=== PATIENT | female | born 1950 | race Caucasian/White ===

== ENCOUNTER 2023-04-15 09:09 | Inpatient (IN) | payer MEDICARE, SELFPAY ==
[2023-04-15] VITALS (13 sets, daily range): BP systolic 104–147; BP diastolic 58–96; PULSE 81–96; RESP 18–28; TEMP 36.4–36.9; O2SAT 81–97; BMI 31.1; BMI 24.0
--- NOTE | 2023-04-15 09:17 | ECG_ITS ---
APPROVED REPORT Exam: Resting ECG HR:106 bpm ECG Measurements Heart Rate 106 AXES AZ 144 P 85 QRSd 80 QRS -43 QT 296 T 97 QTc 358 Conclusion SINUS TACHYCARDIA POSSIBLE LEFT ATRIAL ENLARGEMENT [-0.1mV P-WAVE IN V1/V2] LEFT AXIS DEVIATION [QRS AXIS < -30] NONSPECIFIC ST & T-WAVE ABNORMALITY ABNORMAL ECG UNCONFIRMED REPORT Electronically signed by : Adriano Carmen MD 04/15/2023 13:30:22
--- NOTE | 2023-04-15 09:26 | HMH.EDSOB ---
Discharge Plan Disposition Chief Complaint: Shortness of Breath/Dyspnea Referrals Follow up/Referrals: Provider,Referral, MD [Primary Care Provider] - See instructions Clinical Impressions Clinical Impression: Community acquired pneumonia, Congestive heart failure, Hypoxia Discharge ED Provider: Ranjeet Oconnell Resp/SOB HPI General Chief Complaint: Shortness of Breath/Dyspnea Stated Complaint: soa no balance not eating or drinking Time Seen by Provider: 04/15/23 09:25 History of Present Illness The patient presents to the emergency department complaining of a 1-1/2-week history of dyspnea. This is accompanied by nonproductive cough. The patient denies any fevers. She is a smoker. She has no primary care physician and does not take any medications. She is not on home oxygen. Related Data Allergies Allergy/AdvReac Type Severity Reaction Status Date / Time No Known Allergies Allergy Verified 04/15/23 09:34 [facility] Disclaimer: The information contained in this section may have been updated after the patient was seen, as this information can be updated by other users. Social History Smoking Status: Current every day smoker alcohol intake: never current occupational status: retired Travel in the last 8 weeks: None ROS Obtained: Yes All systems reviewed & no additional complaints except as documented Physical Exam General General appearance: alert and in no apparent distress (Mild respiratory distress) Head Head exam: atraumatic Eye Eye exam: Present normal appearance ENT ENT exam: Present normal exam Neck Neck exam: Present normal inspection and full ROM; Absent tenderness or meningismus Chest Chest inspection: Present normal inspection and symmetric chest wall rise; Absent tenderness Respiratory Respiratory exam: Present respiratory distress (Mild) and other (Diffusely diminished breath sounds.); Absent normal lung sounds bilaterally, wheezes, stridor, accessory muscle use or prolonged expiratory phase Cardiovascular Cardiovascular exam: Present regular rate, normal rhythm, tachycardia and normal heart sounds Abdominal Exam Abdominal exam: Present soft and normal bowel sounds; Absent distention, tenderness, heel tap sign, Honeycutt's sign, Rovsing's sign, tenderness at McBurney's Point or mass Extremities Exam Extremities exam: Present normal inspection and full ROM; Absent edema or calf tenderness Back Exam Back exam: Present normal inspection; Absent CVA tenderness (R) or CVA tenderness (L) Neurological Exam Neurological exam: Present alert and oriented X3 Psychiatric Psychiatric exam: Present normal affect and normal mood Skin Skin exam: Present warm, dry, intact and normal color Medical Decision Making Chance Inquiry Pt receiving controlled substance: No Vital Signs: 04/15/23 09:36 04/15/23 09:10 04/15/23 09:30 Temperature 97.5 F L Temperature Source Oral Pulse Rate 96 H Pulse Rate [Left] 81 Respiratory Rate 26 H 24 Blood Pressure 122/75 Blood Pressure [Right Arm] 147/96 H Blood Pressure Mean 98 Blood Pressure Mean [Right Arm] 113 Blood Pressure Source [Right Arm] Automatic Cuff Blood Pressure Position [Right Arm] Sitting 02 Sat by Pulse Oximetry 96 81 L 96 Oxygen Delivery Method Nasal Cannula Room Air Oxygen Flow Rate (LPM) 4 04/15/23 10:00 04/15/23 10:31 Temperature Temperature Source Pulse Rate 92 H 89 Pulse Rate [Left] Respiratory Rate 24 28 H Blood Pressure 120/62 137/74 Blood Pressure [Right Arm] Blood Pressure Mean 81 95 Blood Pressure Mean [Right Arm] Blood Pressure Source [Right Arm] Blood Pressure Position [Right Arm] 02 Sat by Pulse Oximetry 96 96 Oxygen Delivery Method Nasal Cannula Oxygen Flow Rate (LPM) 4 Lab Data Lab Results 04/15/23 09:31: WBC 25.7 H*, RBC 4.93, Hgb 14.8, Hct 47.4 H, MCV 96.2, MCH 30.1, MCHC 31.2 L, RDW 13.2, Plt Count 499 H, MPV 8.1, Neut % (Auto) 92.3 H, Lymph % (Auto) 3.3 L, [place] % (Auto
--- NOTE | 2023-04-15 09:28 | XR_ITS ---
FINAL REPORT CLINICAL HISTORY: Dyspnea and hypoxia FINDINGS: There are extensive bilateral pulmonary opacities, left greater than right likely related to multifocal pneumonia. No significant pleural effusion is seen. The cardiac silhouette is unremarkable. IMPRESSION: Extensive lung disease, presumably pneumonia. Close interval follow-up is recommended. Reviewed, Interpreted and Dictated by Hannah Fishman MD Transcribed by Heike Cruz Authenticated and [facility]
[2023-04-15 09:42] LABS: Basophils # 0.1 K/mm3 (0-0.2); Basophils % 0.3 % (0.1-2.0); Eosinophils # 0.1 K/mm3 (0.0-0.4); Eosinophils % 0.3 % (0.1-12.0); Hematocrit 47.4 % (37.0-47.0); Hemoglobin 14.8 g/dL (12.2-16.2); Lymphocytes # 0.8 K/mm3 (0.7-4.5); Lymphocytes % 3.3 % (10-50); Mean Corpuscular HGB Conc 31.2 g/dL (31.8-35.4); Mean Corpuscular Hemoglobin 30.1 pg (27.0-31.2); Mean Corpuscular Volume 96.2 fl (81-99); Mean Platelet Volume 8.1 fl (7.4-10.4); Monocytes % 3.8 % (1.7-9.3); Neutrophils # 23.8 K/mm3 (1.8-7.8); Neutrophils % 92.3 % (37.0-80.0); Platelet Count 499 K/mm3 (142-424); Red Blood Count 4.93 M/mm3 (4.20-5.40); Red Cell Distribution Width 13.2 % (11.5-17.5); White Blood Count 25.7 K/mm3 (4.8-10.8)
[2023-04-15 09:45] LABS: MANUAL DIFFERENTIAL MANUAL DIFFERENTIAL (MANUAL DIFF)
[2023-04-15 09:49] LABS: Coronavirus 19, PCR Not Detected (NotDetected); Influenza A, PCR Not Detected (NotDetected); Influenza B, PCR Not Detected (NotDetected)
[2023-04-15 09:52] LABS: Alanine Aminotransferase 31 U/L (12-78); Albumin Level 3.5 g/dl (3.5-5.0); Albumin/Globulin Ratio 0.8 (1.1-1.8); Alkaline Phosphatase 241 U/L (38-126); Anion Gap 16.1 mEq/L (5-15); Aspartate Amino Transferase 33 U/L (14-36); Bilirubin,Total 0.6 mg/dl (0.2-1.3); Blood Urea Nitrogen 44 mg/dl (7-17); Calcium 8.6 mg/dl (8.4-10.2); Carbon Dioxide 33 mmol/L (22.0-30.0); Chloride 96 mmol/L (98-107); Creatinine Clearance Estimated 57 mL/min (50-200); Estimated Glomerular Filt Rate 49 ml/min (>60); GFR (African American) 59 ML/MIN (>60); Globulin 4.5 g/dL (1.3-3.2); Glucose 122 mg/dl (74-100); Potassium 4.1 mmoL/L (3.5-5.1); Sodium 141 mmol/L (136-145)
[2023-04-15 09:56] LABS: Lymphocytes % 5 % (10-50); Monocytes % 5 % (2-9); Neutrophils % 86 % (42-76); Platelet Estimate Slight Increase; RBC Morphology Normal; Total Cells Counted 100
[2023-04-15 10:03] LABS: NT Pro Brain Natriuretic Pep. 3100 pg/mL (0-125); Troponin I 0.15 ng/ml (0.00-0.034)
[2023-04-15 10:09] LABS: Lactic Acid 2.3 mmol/L (0.7-2.1)
--- NOTE | 2023-04-15 10:19 | PC.NURSE ---
To Ct in wheelchair
--- NOTE | 2023-04-15 10:37 | PC.NURSE ---
2nd blood culture drawn prior to abx start.
--- NOTE | 2023-04-15 10:40 | PC.NURSE ---
Rounded on patient; nothing needed at this time. Call lua within reach
--- NOTE | 2023-04-15 10:50 | PC.NURSE ---
on the phone with hospitalist
--- NOTE | 2023-04-15 10:55 | PC.NURSE ---
Case management called for admission.
[2023-04-15 12:56] LABS: Troponin I 0.15 ng/ml (0.00-0.034)
[2023-04-15 13:55] LABS: Reflex Lactic Add Lactic Reflex
[2023-04-15 14:20] LABS: Lactic Acid Follow Up (RFLX 1) 1.3 mmol/L (0.7-2.1)
[2023-04-15 16:04] LABS: POC Glucose,Bedside 107 (70-110)
--- NOTE | 2023-04-15 16:11 | PC.NURSE ---
Pt. is aox 4, up with stand by assist, 02-4L nc sats at 96%, o skin, 20g L AC sl.
--- NOTE | 2023-04-15 17:49 | EXP.HP ---
History of Present Illness *Admission Date: 04/15/23 *Reason for visit:: Dyspnea and weak *History of present illness: Ms. Corona is a pleasant 72-year-old female who has not seen a doctor in over 8 years. She presented to the ER with worsening cough, shortness of breath for the past 2 to 3 weeks. Since progressed to the point that she could not breathe and decided to come to the ER for further evaluation. Found to be hypoxic. Imaging positive for left lower lobe pneumonia. Started on empiric antibiotics. Additionally patient's BNP is elevated at 3100, leukocytosis of 25. Currently on 4 L nasal cannula. ER consulted medicine for admission. On arrival to the floor, patient states she is feeling somewhat better after starting breathing treatments and antibiotics. Stable on 4 L oxygen. No nausea, vomiting, chest pain. No confusion or syncope. [facility] Disclaimer: The information contained in this section may have been updated after the patient was seen, as this information can be updated by other users. Medical History No pertinent past medical history Surgical History H/O knee surgery Family History No significant family history Social History Smoking Status: Current every day smoker alcohol intake: never current occupational status: retired Travel in the last 8 weeks: None Review of Systems Review of Systems Review of systems (narrative): 14 point review of systems performed, pertinent positives and negatives as per HPI Meds Home Medications and Allergies Home Medications Medication Instructions Recorded Confirmed Type No Known Home Medications 04/15/23 04/15/23 History New Prescriptions to Start Prescriptions: Allergies Allergy/AdvReac Type Severity Reaction Status Date / Time No Known Allergies Allergy Verified 04/15/23 09:34 Exam Data for Last 24 hours Vital signs and Labs for Last 24 Hours: Temp Pulse Resp BP Pulse Ox 97.6 F 86 18 135/62 95 04/15/23 15:58 04/15/23 15:58 04/15/23 15:58 04/15/23 15:58 04/15/23 15:58 Laboratory Results - last 24 hr 04/15/23 09:31: WBC 25.7 H*, RBC 4.93, Hgb 14.8, Hct 47.4 H, MCV 96.2, MCH 30.1, MCHC 31.2 L, RDW 13.2, Plt Count 499 H, MPV 8.1, Neut % (Auto) 92.3 H, Lymph % (Auto) 3.3 L, [place] % (Auto) 3.8, Eos % (Auto) 0.3, Baso % (Auto) 0.3, Neut # (Auto) 23.8 H, Lymph # (Auto) 0.8, [place] # (Auto) 1.0, Eos # (Auto) 0.1, Baso # (Auto) 0.1, Total Counted 100, Neutrophils % (Manual) 86 H, Band Neutrophils % 4.0, Lymphocytes % (Manual) 5 L, Monocytes % (Manual) 5, Platelet Estimate Slight increase, RBC Morphology Normal 04/15/23 09:31: Sodium 141, Potassium 4.1, Chloride 96 L, Carbon Dioxide 33 H, Anion Gap 16.1 H, BUN 44 H, Creatinine 1.10 H, Estimated Creat Clear 57, Estimated GFR 49 L, Est GFR ( Amer) 59, Glucose 122 H, Calcium 8.6, Total Bilirubin 0.6, AST 33, ALT 31, Alkaline Phosphatase 241 H, Troponin I 0.15 H, NT-Pro-B Natriuret Pep 3100 H, Total Protein 8.0, Albumin 3.5, Globulin 4.5 H, Albumin/Globulin Ratio 0.8 L 04/15/23 09:31: Lactate 2.3 H 04/15/23 09:44: SARS-CoV-2 (PCR) Not detected, Influenza A Untype (PCR) Not detected, Influenza Type B (PCR) Not detected 04/15/23 12:20: Troponin I 0.15 H 04/15/23 14:00: Lactate 1.3 04/15/23 15:52: POC Glucose 107 I & O for Last 24 hours: Intake & Output 04/12/23 04/13/23 04/14/23 04/15/23 23:59 23:59 23:59 23:59 Intake Total 240 / 240 Output Total 250 / 250 Balance -10 / -10 Weight 59.534 kg Constitutional Constitutional: mild distress and cooperative *Routine HEENT Exam Head: Present normocephalic Eye: Present EOMI and PERRL ENT: Present mucous membranes moist *Routine Neck Exam Neck: Present supple; Absent lymphadenopathy *Routine Respiratory Exam
[2023-04-15 18:05] LABS: Thyroid Stimulating Hormone 3.38 uIU/mL (0.465-4.68)
[2023-04-16] VITALS (14 sets, daily range): BP systolic 105–151; BP diastolic 49–80; PULSE 65–100; RESP 18–22; TEMP 36.3–36.8; O2SAT 85–97; BMI 24.7
[2023-04-16 06:30] LABS: Basophils # 0.1 K/mm3 (0-0.2); Basophils % 0.2 % (0.1-2.0); Eosinophils # 0.1 K/mm3 (0.0-0.4); Eosinophils % 0.3 % (0.1-12.0); Mean Platelet Volume 7.9 fl (7.4-10.4); Red Cell Distribution Width 13.2 % (11.5-17.5)
[2023-04-16 06:53] LABS: Chloride 98 mmol/L (98-107); Sodium 140 mmol/L (136-145)
[2023-04-16 06:56] LABS: Alanine Aminotransferase 22 U/L (12-78); Alkaline Phosphatase 175 U/L (38-126); Aspartate Amino Transferase 31 U/L (14-36); Bilirubin,Total 0.4 mg/dl (0.2-1.3); Blood Urea Nitrogen 35 mg/dl (7-17); Carbon Dioxide 38 mmol/L (22.0-30.0); Cholesterol 127 mg/dl (140-200); Creatinine Clearance Estimated 50 mL/min (50-200); Estimated Glomerular Filt Rate 55 ml/min (>60); GFR (African American) 66 ML/MIN (>60); Triglycerides 143 mg/dl (30-150); VLDL Cholesterol 29 mg/dL (0-40)
[2023-04-16 06:57] LABS: Albumin Level 2.9 g/dl (3.5-5.0); Albumin/Globulin Ratio 0.8 (1.1-1.8); Calcium 8.3 mg/dl (8.4-10.2); Chol/HDL Ratio 6.4 (1-3.5); Globulin 3.7 g/dL (1.3-3.2); Glucose 97 mg/dl (74-100); HDL Cholesterol 20 mg/dl (40-60); Magnesium 2.7 mg/dl (1.6-2.3); Total Protein,Serum 6.6 g/dl (6.3-8.2)
[2023-04-16 07:08] LABS: Direct LDL Cholesterol 57.86 mg/dL (100-129)
[2023-04-16 07:15] LABS: Hematocrit 43.2 % (37.0-47.0); Lymphocytes % 3.9 % (10-50); Mean Corpuscular HGB Conc 30.5 g/dL (31.8-35.4); Mean Corpuscular Hemoglobin 30.2 pg (27.0-31.2); Monocytes # 1.2 K/mm3 (0.1-1.0); Monocytes % 4.7 % (1.7-9.3); Neutrophils # 23.1 K/mm3 (1.8-7.8); Neutrophils % 90.8 % (37.0-80.0); Platelet Count 470 K/mm3 (142-424); Red Blood Count 4.37 M/mm3 (4.20-5.40); White Blood Count 25.5 K/mm3 (4.8-10.8)
[2023-04-16 07:38] LABS: Hemoglobin 13.2 g/dL (12.2-16.2)
[2023-04-16 07:40] LABS: MANUAL DIFFERENTIAL MANUAL DIFFERENTIAL (MANUAL DIFF)
[2023-04-16 07:51] LABS: Lymphocytes % 6 % (10-50); Monocytes % 8 % (2-9); Neutrophils % 86 % (42-76); Platelet Estimate Slight Increase; Total Cells Counted 100
[2023-04-16 07:52] LABS: RBC Morphology Normal
--- NOTE | 2023-04-16 09:08 | PC.NURSE ---
COURTESY TECH NOTE; ROUNDED ON PT 0800, PT SLEEPING AT THIS TIME, CALL LIGHT WITHIN REACH, NO FURTHER REQUESTS Amber KEY, SRNA
--- NOTE | 2023-04-16 10:12 | EXP.PN ---
Subjective *Date: 04/16/23 *Time: 17:23 Interval history: No acute events overnight. Less dyspnea. Overall feels much better. Continues to have a cough. Exam Data for Last 24 hours Vital signs and Labs for Last 24 Hours: Temp Pulse Resp BP Pulse Ox 97.4 F L 85 20 126/64 97 04/16/23 08:00 04/16/23 08:00 04/16/23 08:00 04/16/23 08:00 04/16/23 08:00 Laboratory Results - last 24 hr 04/15/23 12:20: Troponin I 0.15 H 04/15/23 14:00: Lactate 1.3 04/15/23 14:00: TSH 3.38 04/15/23 15:52: POC Glucose 107 04/16/23 05:38: WBC 25.5 H*, RBC 4.37, Hgb 13.2 D, Hct 43.2, MCV 99.0, MCH 30.2, MCHC 30.5 L, RDW 13.2, Plt Count 470 H, MPV 7.9, Neut % (Auto) 90.8 H, Lymph % (Auto) 3.9 L, [place] % (Auto) 4.7, Eos % (Auto) 0.3, Baso % (Auto) 0.2, Neut # (Auto) 23.1 H, Lymph # (Auto) 1.0, [place] # (Auto) 1.2 H, Eos # (Auto) 0.1, Baso # (Auto) 0.1, Total Counted 100, Neutrophils % (Manual) 86 H, Lymphocytes % (Manual) 6 L, Monocytes % (Manual) 8, Platelet Estimate Slight increase, RBC Morphology Normal 04/16/23 05:38: Sodium 140, Potassium 4.0, Chloride 98, Carbon Dioxide 38 H, Anion Gap 8.0, BUN 35 H, Creatinine 1.00, Estimated Creat Clear 50, Estimated GFR 55 L, Est GFR ( Amer) 66, Glucose 97 D, Calcium 8.3 L, Magnesium 2.7 H, Total Bilirubin 0.4, AST 31, ALT 22 D, Alkaline Phosphatase 175 H, Total Protein 6.6, Albumin 2.9 L D, Globulin 3.7 H, Albumin/Globulin Ratio 0.8 L, Triglycerides 143, Cholesterol 127 L, LDL Cholesterol Direct 57.86 L, VLDL Cholesterol 29, HDL Cholesterol 20 L, Cholesterol/HDL Ratio 6.4 H I & O for Last 24 hours: Intake & Output 04/13/23 04/14/23 04/15/23 04/16/23 23:59 23:59 23:59 23:59 Intake Total 530 / 530 240 / 240 Output Total 250 / 250 0 / 0 Balance 280 / 280 240 / 240 Weight 59.534 kg 60.917 kg Constitutional Constitutional: no acute distress *Routine HEENT Exam Head: Present normocephalic Eye: Present EOMI and PERRL ENT: Present mucous membranes moist *Routine Neck Exam Neck: Present supple; Absent lymphadenopathy *Routine Respiratory Exam Respiratory: Present accessory muscle use and symmetric chest movement; Absent stridor or wheezes *Routine Cardiovascular Exam Cardiovascular: Present RRR *Routine Abdominal Exam Abdominal: Present soft and normoactive bowel sounds; Absent tenderness *Routine Extremities Exam Extremities: Absent cyanosis, clubbing or edema *Routine Skin Exam Skin: Present warm; Absent rash *Routine Neurological Exam Neurological: Present alert and oriented X3 Assessment and Plan *Assessment and plan (1) Tobacco use disorder: Status: Chronic Category: Medical Code(s): F17.200 - Nicotine dependence, unspecified, uncomplicated (2) Acute hypoxemic respiratory failure: Status: Acute Category: Medical Code(s): J96.01 - Acute respiratory failure with hypoxia (3) Community acquired pneumonia: Status: Acute Qualifiers: Laterality: unspecified laterality Qualified Code(s): J18.9 - Pneumonia, unspecified organism Category: Medical Code(s): J18.9 - Pneumonia, unspecified organism (4) Hypoxia: Status: Acute Category: Medical Code(s): R09.02 - Hypoxemia (5) NSTEMI (non-ST elevated myocardial infarction): Status: Acute Category: Medical Code(s): I21.4 - Non-ST elevation (NSTEMI) myocardial infarction Plan Bharati Corona is a 72 year old female who presented with 2-3 weeks of shortness of breath and admitted on 04/15 with left lower lobe pneumonia. #acute hypoxic respiratory failure #community acquired pneumonia. #sepsis wean supplemental oxygen as tolerated stop zosyn and start Rocephin. continue duoneb q6h follow cultures ambulate BID start Mucinex dvt ppx: lovenox DNI cardiac diet
--- NOTE | 2023-04-16 10:42 | EXP.CARD.CON ---
History of Present Illness History of Present Illness Consult date: 04/16/23 Requesting physician: Darrell Mars Consult reason: chest pain Chief complaint: Pneumonia, NSTEMI type 2 Additional Medical History:: 1. Tobacco use A. 1 pack/day x 15 years 2. Pneumonia, 04/15/2023 3. Elevated troponin secondary to pneumonia, 04/16/2023 A. EKG, 04/15/2023, sinus tach with left axis deviation and nonspecific ST-T abnormalities History of present illness: Ms. Corona is a pleasant 72-year-old female who has not seen a doctor in over 8 years.? She presented to the ER with worsening cough, shortness of breath for the past 2 to 3 weeks.? Since progressed to the point that she could not breathe and decided to come to the ER for further evaluation.? Found to be hypoxic.? Imaging positive for left lower lobe pneumonia.? Started on empiric antibiotics.? Additionally patient's BNP is elevated at 3100, leukocytosis of 25.? Currently on 4 L nasal cannula.? ER consulted medicine for admission. On arrival to the floor, patient states she is feeling somewhat better after starting breathing treatments and antibiotics.? Stable on 4 L oxygen.? No nausea, vomiting, chest pain.? No confusion or syncope. The above per Dr. Mars Cardiology consulted for evaluation of elevated troponin and elevated BNP. CXR negative for CHF. Longtime smoker Denies history of hypertension, hyperlipidemia or diabetes. No family history of early coronary artery disease. EKG this admission shows sinus tachycardia at 106 bpm, left axis deviation and nonspecific ST-T abnormalities. Preliminary echocardiogram shows preserved ejection fraction at 60-65% without wall motion abnormality or significant valve disease. Troponins have been mildly positive at 0.15 X 2. Patient denies any chest pain, pressure or tightness but does have some exertional shortness of breath over the last couple years that have caused her to discontinue some activities such as mowing her grass. She just felt that her smoking was the cause of it. She currently asymptomatic from a chest pain standpoint. She is feeling better after breathing treatments and antibiotics have been started. She is still on oxygen. [facility] Disclaimer: The information contained in this section may have been updated after the patient was seen, as this information can be updated by other users. Medical History No pertinent past medical history Surgical History H/O knee surgery Family History No significant family history Social History Smoking Status: Current every day smoker alcohol intake: never current occupational status: retired Travel in the last 8 weeks: None Review of Systems Review of Systems Review of systems:: pertinent systems reviewed and negative unless documented below *Cardiovascular Cardiovascular: Denies chest pain and Reports dyspnea on exertion *Respiratory Respiratory: Reports dyspnea on exertion *Gastrointestinal Gastrointestinal: Denies abdominal pain Exam Data for Last 24 hours Vital signs and Labs for Last 24 Hours: Temp Pulse Resp BP Pulse Ox 97.4 F L 85 20 126/64 97 04/16/23 08:00 04/16/23 08:00 04/16/23 08:00 04/16/23 08:00 04/16/23 08:00 Laboratory Results - last 24 hr 04/15/23 12:20: Troponin I 0.15 H 04/15/23 14:00: Lactate 1.3 04/15/23 14:00: TSH 3.38 04/15/23 15:52: POC Glucose 107 04/16/23 05:38: WBC 25.5 H*, RBC 4.37, Hgb 13.2 D, Hct 43.2, MCV 99.0, MCH 30.2, MCHC 30.5 L, RDW 13.2, Plt Count 470 H, MPV 7.9, Neut % (Auto) 90.8 H, Lymph % (Auto) 3.9 L, [place] % (Auto) 4.7, Eos % (Auto) 0.3, Baso % (Auto) 0.2, Neut # (Auto) 23.1 H, Lymph # (Auto) 1.0, [place] # (Auto) 1.2 H, Eos # (Auto) 0.1, Baso # (Auto) 0.1, Total Counted 100, Neutrophils % (Manual) 86 H, Lymphocytes % (Manual) 6 L,
--- NOTE | 2023-04-16 14:32 | PC.NURSE ---
COURTESY TECH NOTE; ROUNDED ON PT, PT DENIED NEED FOR ASSISTANCE WITH RESTROOM, DRINK, AND NEED TO REPOSITION. CALL LIGHT WITHIN REACH, NO FURTHER REQUESTS AT THIS TIME [place] HERNANDEZ
--- NOTE | 2023-04-16 16:22 | PC.NURSE ---
A&OX4. PT HAS BEEN ON 5LNC MAJORITY OF SHIFT THUS FAR. STAFF WALKED IN TO CHECK PT TO FIND HER OXYGEN OFF. RA WAS 86%. PT PLACED ON 3LNC, WILL RE-CHECK O2 SAT. PT HAS DRY UNPRODUCTIVE COUGH THUS FAR. PT UP INDEPENDENTLY TO BATHROOM. NO NEEDS OR C/O NOTED THUS FAR. VSS.
[2023-04-17] VITALS (14 sets, daily range): BP systolic 119–143; BP diastolic 63–85; PULSE 66–89; RESP 18–20; TEMP 36.5–36.8; O2SAT 91–95; BMI 24.8
[2023-04-17 07:10] LABS: Basophils # 0.1 K/mm3 (0-0.2); Basophils % 0.5 % (0.1-2.0); Eosinophils # 0.1 K/mm3 (0.0-0.4); Eosinophils % 0.5 % (0.1-12.0); Hematocrit 40.6 % (37.0-47.0); Hemoglobin 12.4 g/dL (12.2-16.2); Lymphocytes # 1.2 K/mm3 (0.7-4.5); Mean Corpuscular HGB Conc 30.6 g/dL (31.8-35.4); Mean Corpuscular Hemoglobin 30.4 pg (27.0-31.2); Mean Corpuscular Volume 99.2 fl (81-99); Mean Platelet Volume 7.9 fl (7.4-10.4); Monocytes % 4.9 % (1.7-9.3); Neutrophils # 17.7 K/mm3 (1.8-7.8); Platelet Count 469 K/mm3 (142-424); Red Blood Count 4.09 M/mm3 (4.20-5.40); Red Cell Distribution Width 13.1 % (11.5-17.5); White Blood Count 20.2 K/mm3 (4.8-10.8)
[2023-04-17 07:11] LABS: MANUAL DIFFERENTIAL MANUAL DIFFERENTIAL (MANUAL DIFF)
[2023-04-17 07:23] LABS: Chloride 98 mmol/L (98-107); Potassium 4.3 mmoL/L (3.5-5.1); Sodium 142 mmol/L (136-145)
[2023-04-17 07:26] LABS: Anion Gap 9.3 mEq/L (5-15); Blood Urea Nitrogen 24 mg/dl (7-17); Calcium 8.2 mg/dl (8.4-10.2); Carbon Dioxide 39 mmol/L (22.0-30.0); Creatinine Clearance Estimated 50 mL/min (50-200); Estimated Glomerular Filt Rate 55 ml/min (>60); GFR (African American) 66 ML/MIN (>60); Glucose 93 mg/dl (74-100)
--- NOTE | 2023-04-17 09:11 | EXP.PN ---
Subjective *Date: 04/17/23 *Time: 11:17 Interval history: This morning the patient is saturating 94% on 5L NC. CBC is with 20K WBCs, decreased from 25K yesterday. She has less dyspnea and is coughing less. She denies pain. She has been ambulating and her appetite is good. Exam Data for Last 24 hours Vital signs and Labs for Last 24 Hours: Temp Pulse Resp BP Pulse Ox 97.9 F 74 18 121/64 94 L 04/17/23 07:14 04/17/23 07:14 04/17/23 07:14 04/17/23 07:14 04/17/23 07:14 Laboratory Results - last 24 hr 04/17/23 06:31: WBC 20.2 H*, RBC 4.09 L, Hgb 12.4, Hct 40.6, MCV 99.2 H, MCH 30.4, MCHC 30.6 L, RDW 13.1, Plt Count 469 H, MPV 7.9, Neut % (Auto) 88.0 H, Lymph % (Auto) 6.0 L, [place] % (Auto) 4.9, Eos % (Auto) 0.5, Baso % (Auto) 0.5, Neut # (Auto) 17.7 H, Lymph # (Auto) 1.2, [place] # (Auto) 1.0, Eos # (Auto) 0.1, Baso # (Auto) 0.1 04/17/23 06:31: Sodium 142, Potassium 4.3, Chloride 98, Carbon Dioxide 39 H, Anion Gap 9.3, BUN 24 H D, Creatinine 1.00, Estimated Creat Clear 50, Estimated GFR 55 L, Est GFR ( Amer) 66, Glucose 93, Calcium 8.2 L I & O for Last 24 hours: Intake & Output 04/14/23 04/15/23 04/16/23 04/17/23 23:59 23:59 23:59 23:59 Intake Total 530 / 530 600 / 720 480 / 480 Output Total 250 / 250 0 / 0 0 / 0 Balance 280 / 280 600 / 720 480 / 480 Weight 59.534 kg 60.9 kg 61.292 kg Constitutional Constitutional: no acute distress *Routine HEENT Exam Head: Present normocephalic Eye: Present EOMI and PERRL ENT: Present mucous membranes moist *Routine Neck Exam Neck: Present supple; Absent lymphadenopathy *Routine Respiratory Exam Respiratory: Present accessory muscle use and symmetric chest movement; Absent stridor or wheezes *Routine Cardiovascular Exam Cardiovascular: Present RRR *Routine Abdominal Exam Abdominal: Present soft and normoactive bowel sounds; Absent tenderness *Routine Extremities Exam Extremities: Absent cyanosis, clubbing or edema *Routine Skin Exam Skin: Present warm; Absent rash *Routine Neurological Exam Neurological: Present alert and oriented X3 Assessment and Plan *Assessment and plan (1) Tobacco use disorder: Status: Chronic Category: Medical Code(s): F17.200 - Nicotine dependence, unspecified, uncomplicated (2) Acute hypoxemic respiratory failure: Status: Acute Category: Medical Code(s): J96.01 - Acute respiratory failure with hypoxia (3) Community acquired pneumonia: Status: Acute Qualifiers: Laterality: unspecified laterality Qualified Code(s): J18.9 - Pneumonia, unspecified organism Category: Medical Code(s): J18.9 - Pneumonia, unspecified organism (4) Hypoxia: Status: Acute Category: Medical Code(s): R09.02 - Hypoxemia (5) NSTEMI (non-ST elevated myocardial infarction): Status: Acute Category: Medical Code(s): I21.4 - Non-ST elevation (NSTEMI) myocardial infarction Plan Bharati Corona is a 72 year old female with a past medical history of cigarette nicotine dependence who prior to this admission hadn't seen a physician in over 8 years. She presented with 2-3 weeks of shortness of breath and admitted on 04/15 with left lower lobe pneumonia. She received a day of zosyn which was then changed to Rocephin. She has also been receiving azithromycin. She had an elevated BNP of 3100 and troponin level of 0.15 so Cardiology was consulted. Echocardiogram revealed LVEF 60-65%. Cardiology started aspirin 81mg daily and irbesartan 37.5mg daily and plans for an outpatient stress test or CCTA. #acute hypoxic respiratory failure #community acquired pneumonia. #sepsis wean supplemental oxygen as tolerated. She is currently using 4-5L NC; at baseline doesn't use supplemental oxygen. Continue azithromycin and Rocephin. Continue Duoneb q6h follow cultures ambulate BID Continue Mucinex I will order a CBC and bmp for tomorrow morning. dvt ppx: lovenox DNI cardiac di
[2023-04-17 10:12] LABS: Lymphocytes % 9 % (10-50); Monocytes % 8 % (2-9); Neutrophils % 83 % (42-76); Platelet Estimate Slight Increase; RBC Morphology Normal; Total Cells Counted 100
[2023-04-18] VITALS (15 sets, daily range): BP systolic 131–146; BP diastolic 60–74; PULSE 60–95; RESP 16–22; TEMP 36.5–36.9; O2SAT 78–96; BMI 24.7
[2023-04-18 06:54] LABS: Basophils # 0.1 K/mm3 (0-0.2); Basophils % 0.4 % (0.1-2.0); Eosinophils # 0.2 K/mm3 (0.0-0.4); Hematocrit 40.1 % (37.0-47.0); Hemoglobin 12.2 g/dL (12.2-16.2); Lymphocytes % 6.2 % (10-50); Mean Corpuscular HGB Conc 30.5 g/dL (31.8-35.4); Mean Corpuscular Hemoglobin 29.6 pg (27.0-31.2); Mean Corpuscular Volume 96.9 fl (81-99); Mean Platelet Volume 7.9 fl (7.4-10.4); Monocytes # 0.8 K/mm3 (0.1-1.0); Monocytes % 4.9 % (1.7-9.3); Neutrophils # 14.6 K/mm3 (1.8-7.8); Neutrophils % 87.5 % (37.0-80.0); Platelet Count 457 K/mm3 (142-424); Red Blood Count 4.14 M/mm3 (4.20-5.40); Red Cell Distribution Width 13.1 % (11.5-17.5); White Blood Count 16.7 K/mm3 (4.8-10.8)
[2023-04-18 07:06] LABS: Chloride 98 mmol/L (98-107); Potassium 4.6 mmoL/L (3.5-5.1); Sodium 141 mmol/L (136-145)
[2023-04-18 07:09] LABS: Anion Gap 7.6 mEq/L (5-15); Blood Urea Nitrogen 18 mg/dl (7-17); Carbon Dioxide 40 mmol/L (22.0-30.0); Creatinine Clearance Estimated 50 mL/min (50-200); Estimated Glomerular Filt Rate 82 ml/min (>60); GFR (African American) 100 ML/MIN (>60)
[2023-04-18 07:10] LABS: Calcium 8.1 mg/dl (8.4-10.2); Glucose 94 mg/dl (74-100); MANUAL DIFFERENTIAL MANUAL DIFFERENTIAL (MANUAL DIFF)
--- NOTE | 2023-04-18 08:19 | EXP.PN ---
Subjective *Date: 04/18/23 *Time: 09:51 Interval history: The patient is saturating 90% on 4L NC. CBC is with 16.7K WBCs, decreased from 20K yesterday. She has less dyspnea and cough. Her cough is nonproductive. Exam Data for Last 24 hours Vital signs and Labs for Last 24 Hours: Temp Pulse Resp BP Pulse Ox 97.9 F 77 18 146/67 H 90 L 04/18/23 07:04 04/18/23 07:04 04/18/23 07:04 04/18/23 07:04 04/18/23 07:04 Laboratory Results - last 24 hr 04/17/23 06:31: Total Counted 100, Neutrophils % (Manual) 83 H, Lymphocytes % (Manual) 9 L, Monocytes % (Manual) 8, Platelet Estimate Slight increase, RBC Morphology Normal 04/18/23 06:47: WBC 16.7 H, RBC 4.14 L, Hgb 12.2, Hct 40.1, MCV 96.9, MCH 29.6, MCHC 30.5 L, RDW 13.1, Plt Count 457 H, MPV 7.9, Neut % (Auto) 87.5 H, Lymph % (Auto) 6.2 L, [place] % (Auto) 4.9, Eos % (Auto) 1.0, Baso % (Auto) 0.4, Neut # (Auto) 14.6 H, Lymph # (Auto) 1.0, [place] # (Auto) 0.8, Eos # (Auto) 0.2, Baso # (Auto) 0.1 04/18/23 06:47: Sodium 141, Potassium 4.6, Chloride 98, Carbon Dioxide 40 H, Anion Gap 7.6, BUN 18 H, Creatinine 0.70 D, Estimated Creat Clear 50, Estimated GFR 82, Est GFR ( Amer) 100 D, Glucose 94, Calcium 8.1 L I & O for Last 24 hours: Intake & Output 04/15/23 04/16/23 04/17/23 04/18/23 23:59 23:59 23:59 23:59 Intake Total 530 / 530 600 / 720 1080 / 1200 360 / 360 Output Total 250 / 250 0 / 0 0 / 0 120 / 120 Balance 280 / 280 600 / 720 1080 / 1200 240 / 240 Weight 59.534 kg 60.9 kg 61.292 kg 60.866 kg Microbiology Reports for the Last 24 Hours: Microbiology 04/15/23 10:42 Blood Blood Culture - Preliminary NO GROWTH AFTER 48 HOURS 04/15/23 09:31 Blood Blood Culture - Preliminary NO GROWTH AFTER 48 HOURS Constitutional Constitutional: no acute distress *Routine HEENT Exam Head: Present normocephalic Eye: Present EOMI and PERRL ENT: Present mucous membranes moist *Routine Neck Exam Neck: Present supple; Absent lymphadenopathy *Routine Respiratory Exam Respiratory: Present accessory muscle use and symmetric chest movement; Absent stridor or wheezes *Routine Cardiovascular Exam Cardiovascular: Present RRR *Routine Abdominal Exam Abdominal: Present soft and normoactive bowel sounds; Absent tenderness *Routine Extremities Exam Extremities: Absent cyanosis, clubbing or edema *Routine Skin Exam Skin: Present warm; Absent rash *Routine Neurological Exam Neurological: Present alert and oriented X3 Assessment and Plan *Assessment and plan (1) Tobacco use disorder: Status: Chronic Category: Medical Code(s): F17.200 - Nicotine dependence, unspecified, uncomplicated (2) Acute hypoxemic respiratory failure: Status: Acute Category: Medical Code(s): J96.01 - Acute respiratory failure with hypoxia (3) Community acquired pneumonia: Status: Acute Qualifiers: Laterality: unspecified laterality Qualified Code(s): J18.9 - Pneumonia, unspecified organism Category: Medical Code(s): J18.9 - Pneumonia, unspecified organism (4) Hypoxia: Status: Acute Category: Medical Code(s): R09.02 - Hypoxemia (5) NSTEMI (non-ST elevated myocardial infarction): Status: Acute Category: Medical Code(s): I21.4 - Non-ST elevation (NSTEMI) myocardial infarction Plan Bharati Corona is a 72 year old female with a past medical history of cigarette nicotine dependence who prior to this admission hadn't seen a physician in over 8 years. She presented with 2-3 weeks of shortness of breath and admitted on 04/15 with left lower lobe pneumonia. She received a day of zosyn which was then changed to Rocephin. She has also been receiving azithromycin. She had an elevated BNP of 3100 and troponin level of 0.15 so Cardiology was consulted. Echocardiogram revealed LVEF 60-65%. Cardiology started aspirin 81mg daily and irbesartan 37.5mg daily and janneth
--- NOTE | 2023-04-18 08:28 | P.PN_ITS ---
Subjective *Date: 04/18/23 *Time: 08:28 Medical Exam Vital signs and Labs for Last 24 Hours: Vital Signs Temp Pulse Pulse Resp BP Pulse Ox 04/18/23 07:04 97.9 F 77 18 146/67 H 90 L 04/18/23 06:15 71 04/18/23 06:15 74 04/18/23 06:15 90 L 04/18/23 04:00 70 04/18/23 04:00 98.2 F 74 18 145/72 H 96 04/18/23 00:00 60 04/18/23 00:00 97.8 F 76 20 131/60 92 L 04/17/23 23:19 84 04/17/23 23:18 81 04/17/23 20:00 70 04/17/23 19:51 98.1 F 83 20 143/70 H 93 L 04/17/23 18:30 83 04/17/23 18:29 85 04/17/23 16:00 67 04/17/23 15:35 98.0 F 70 18 131/63 92 L 04/17/23 12:01 75 04/17/23 11:05 97.7 F 71 18 119/67 92 L Intake and Output 04/17/23 04/18/23 04/18/23 23:59 07:59 15:59 Intake Total 360 / 1200 360 / 360 Output Total 0 / 0 120 / 120 Balance 360 / 1200 240 / 240 Intake: Intake, Oral Amount 360 / 1200 360 / 360 Output: Output, Urine Amount 0 / 0 120 / 120 Other: Number of Unmeasured Voids 1 1 Weight 60.866 kg Patient Weight 04/18/23 23:59 Weight 60.866 kg Laboratory Results - last 24 hr 04/17/23 06:31: Total Counted 100, Neutrophils % (Manual) 83 H, Lymphocytes % (Manual) 9 L, Monocytes % (Manual) 8, Platelet Estimate Slight increase, RBC Morphology Normal 04/18/23 06:47: WBC 16.7 H, RBC 4.14 L, Hgb 12.2, Hct 40.1, MCV 96.9, MCH 29.6, MCHC 30.5 L, RDW 13.1, Plt Count 457 H, MPV 7.9, Neut % (Auto) 87.5 H, Lymph % (Auto) 6.2 L, [place] % (Auto) 4.9, Eos % (Auto) 1.0, Baso % (Auto) 0.4, Neut # (Auto) 14.6 H, Lymph # (Auto) 1.0, [place] # (Auto) 0.8, Eos # (Auto) 0.2, Baso # (Auto) 0.1 04/18/23 06:47: Sodium 141, Potassium 4.6, Chloride 98, Carbon Dioxide 40 H, Anion Gap 7.6, BUN 18 H, Creatinine 0.70 D, Estimated Creat Clear 50, Estimated GFR 82, Est GFR ( Amer) 100 D, Glucose 94, Calcium 8.1 L I & O for Labs for Last 24 Hours: Intake & Output 04/15/23 04/16/23 04/17/23 04/18/23 23:59 23:59 23:59 23:59 Intake Total 530 / 530 600 / 720 1080 / 1200 360 / 360 Output Total 250 / 250 0 / 0 0 / 0 120 / 120 Balance 280 / 280 600 / 720 1080 / 1200 240 / 240 Weight 59.534 kg 60.9 kg 61.292 kg 60.866 kg Microbiology Reports for the Last 24 Hours: Microbiology 04/15/23 10:42 Blood Blood Culture - Preliminary NO GROWTH AFTER 48 HOURS 04/15/23 09:31 Blood Blood Culture - Preliminary NO GROWTH AFTER 48 HOURS The patient's infection will respond to the chosen ABx?: Yes Is the patient receiving the right drug, dose, and route?: Yes Could a more targeted ABx be ordered?: No
--- NOTE | 2023-04-18 10:48 | PC.NURSE ---
courtesy tech note: pt is lying in bed with curtains raised as requested. call light is within reach.
[2023-04-18 11:22] LABS: Eosinophils % 1 % (0-3); Lymphocytes % 11 % (10-50); Monocytes % 3 % (2-9); Neutrophils % 85 % (42-76); Total Cells Counted 100
[2023-04-18 11:23] LABS: Platelet Estimate Slight Inc; RBC Morphology Normal
[2023-04-19] VITALS (10 sets, daily range): BP systolic 133–151; BP diastolic 65–83; PULSE 76–90; RESP 18–20; TEMP 36.4–37.2; O2SAT 85–93; BMI 24.7
--- NOTE | 2023-04-19 00:05 | PC.NURSE ---
courtesy note : asked pt about bath, patient refused, states she only bathes every other day and just took a shower last night, said she would probably take one tomorrow, nurse is aware.
--- NOTE | 2023-04-19 05:03 | PC.NURSE ---
O2 had to be titrated up to 3.5L nc for pt to maintain sat >90% overnight. Pt has not voiced any c/o to staff. Ambulating to BR with standby assist. Call light within reach.
[2023-04-19 06:12] LABS: Basophils # 0.1 K/mm3 (0-0.2); Basophils % 0.5 % (0.1-2.0); Eosinophils # 0.1 K/mm3 (0.0-0.4); Eosinophils % 0.9 % (0.1-12.0); Hematocrit 41.9 % (37.0-47.0); Lymphocytes # 1.2 K/mm3 (0.7-4.5); Lymphocytes % 7.8 % (10-50); Mean Corpuscular Hemoglobin 30.4 pg (27.0-31.2); Mean Corpuscular Volume 98.3 fl (81-99); Mean Platelet Volume 7.7 fl (7.4-10.4); Monocytes # 0.9 K/mm3 (0.1-1.0); Monocytes % 6.2 % (1.7-9.3); Neutrophils # 12.6 K/mm3 (1.8-7.8); Neutrophils % 84.6 % (37.0-80.0); Platelet Count 436 K/mm3 (142-424); Red Blood Count 4.27 M/mm3 (4.20-5.40); Red Cell Distribution Width 13.1 % (11.5-17.5); White Blood Count 14.8 K/mm3 (4.8-10.8)
[2023-04-19 06:17] LABS: Chloride 97 mmol/L (98-107); Sodium 141 mmol/L (136-145)
[2023-04-19 06:20] LABS: Blood Urea Nitrogen 18 mg/dl (7-17); Creatinine Clearance Estimated 50 mL/min (50-200); Estimated Glomerular Filt Rate 62 ml/min (>60); GFR (African American) 75 ML/MIN (>60)
[2023-04-19 06:21] LABS: Calcium 8.3 mg/dl (8.4-10.2); Carbon Dioxide 39 mmol/L (22.0-30.0); Glucose 93 mg/dl (74-100)
[2023-04-19 06:38] LABS: ABG Base Excess 9.1 mmol/L (-2.4-2.3); ABG HCO3 33.8 mmhg (22.0-26.0); ABG Oxygen Saturation 95 % (90-100); ABG PH 7.41 mmol/L (7.35-7.45); ABG PO2 77.6 mmhg (80-100); ABG TCO2 35.5 mmhg (23-27)
[2023-04-19 06:41] LABS: Allen's Test Acceptable; Source Right Radial
[2023-04-19 06:42] LABS: ABG PCO2 54.8 mmhg (35.0-45.0)
--- NOTE | 2023-04-19 09:43 | EXP.PULM.CON ---
History of Present Illness History of present illness: Ms. Corona is a 72-year-old female current smoker greater than [id number]-tybj smoking history presented to the hospital with worsening respiratory status found to be having been initiated on antibiotics and pulmonary was called for further evaluation. [facility] Disclaimer: The information contained in this section may have been updated after the patient was seen, as this information can be updated by other users. Medical History No pertinent past medical history Surgical History H/O knee surgery Family History No significant family history Social History Smoking Status: Current every day smoker alcohol intake: never current occupational status: retired Travel in the last 8 weeks: None Review of Systems Constitutional Constitutional: Reports anorexia, Reports body ache(s) and Reports fatigue Eyes Eyes: Denies eye discharge, Denies dry eyes, Denies irritation and Denies itchy eyes ENT Ears, Nose, Mouth, and Throat: Denies epistaxis, Denies facial pain, Denies lip swelling and Denies throat swelling *Cardiovascular Cardiovascular: Reports dyspnea, Reports dyspnea on exertion and Denies leg edema *Respiratory Respiratory: Reports chest congestion, Reports cough, Reports dyspnea, Reports dyspnea on exertion, Denies excessive phlegm production, Denies hemoptysis, Denies pain on inspiration, Denies pain with cough and Reports wheezing *Gastrointestinal Gastrointestinal: Denies abdominal pain, Denies belching and Denies cramping *Musculoskeletal Musculoskeletal: Reports back pain, Reports myalgias and Reports other (No small joint swelling or Pain) Psychiatric Psychiatric: Denies homicidal ideation and Denies suicidal ideation Endocrine Endocrine: Reports fatigue and Denies heat intolerance Hematologic/Lymphatic Hematologic/Lymphatic: Denies easy bleeding and Denies lymphadenopathy Allergic/Immunologic Allergic/Immunologic: Denies itchy eyes, Denies lip swelling, Denies throat swelling and Reports wheezing Pulmonology Exam Inpatient Vital signs and Labs for Last 24 Hours: Temp Pulse Resp BP Pulse Ox FiO2 98.2 F 84 18 133/65 92 L 2 04/19/23 08:00 04/19/23 08:00 04/19/23 08:00 04/19/23 08:00 04/19/23 08:00 04/18/23 19:55 Laboratory Results - last 24 hr 04/18/23 06:47: Total Counted 100, Neutrophils % (Manual) 85 H, Lymphocytes % (Manual) 11, Monocytes % (Manual) 3, Eosinophils % (Manual) 1, Platelet Estimate Slight inc, RBC Morphology Normal 04/19/23 05:53: WBC 14.8 H, RBC 4.27, Hgb 13.0, Hct 41.9, MCV 98.3, MCH 30.4, MCHC 31.0 L, RDW 13.1, Plt Count 436 H, MPV 7.7, Neut % (Auto) 84.6 H, Lymph % (Auto) 7.8 L, [place] % (Auto) 6.2, Eos % (Auto) 0.9, Baso % (Auto) 0.5, Neut # (Auto) 12.6 H, Lymph # (Auto) 1.2, [place] # (Auto) 0.9, Eos # (Auto) 0.1, Baso # (Auto) 0.1 04/19/23 05:53: Sodium 141, Potassium 5.0, Chloride 97 L, Carbon Dioxide 39 H, Anion Gap 10.0, BUN 18 H, Creatinine 0.90 D, Estimated Creat Clear 50, Estimated GFR 62, Est GFR ( Amer) 75 D, Glucose 93, Calcium 8.3 L 04/19/23 06:00: Specimen Source Right radial, O2 % 3.5l, ABG pH 7.41, ABG pCO2 54.8 H, ABG pO2 77.6 L, ABG HCO3 33.8 H, ABG Total CO2 35.5 H, ABG O2 Saturation 95, ABG Base Excess 9.1 H, [place] Test Acceptable I & O for Labs for Last 24 Hours: Intake & Output 04/16/23 04/17/23 04/18/23 04/19/23 23:59 23:59 23:59 23:59 Intake Total 600 / 720 1080 / 1200 960 / 960 480 / 480 Output Total 0 / 0 0 / 0 120 / 120 0 / 0 Balance 600 / 720 1080 / 1200 840 / 840 480 / 480 Weight 134 lb 4.184 oz 135 lb 2 oz 134 lb 3 oz 134 lb 9 oz Constitutional: Present moderate distress Head: Present normocephalic and atraumatic ENT: Present normal exam, normal oropharynx and mucous membranes moist Neck: Prese
--- NOTE | 2023-04-19 09:44 | XR_ITS ---
FINAL REPORT TECHNIQUE: Single view chest CLINICAL HISTORY: Hypoxia COMPARISON: 04/15/2023 FINDINGS: A single view of the chest was obtained. The heart and mediastinum are within normal limits. There are persistent bilateral pulmonary opacities consistent with bilateral pneumonia. There is a small right pleural effusion. There is no pneumothorax. Osseous structures are unremarkable. IMPRESSION: Persistent bilateral pulmonary opacities consistent with bilateral pneumonia. Small right pleural effusion. Reviewed, Interpreted and Dictated by Pj Burgos III, MD Transcribed by Sintia Castro Authenticated and [facility]
--- NOTE | 2023-04-19 10:44 | PC.NURSE ---
88% oxygen saturation on room air
--- NOTE | 2023-04-19 12:46 | EXP.DC.SUM ---
General Admission date:: 04/15/23 Discharge date: 04/20/23 HPI HPI HPI: Ms. Corona is a pleasant 72-year-old female who has not seen a doctor in over 8 years. She presented to the ER with worsening cough, shortness of breath for the past 2 to 3 weeks. Since progressed to the point that she could not breathe and decided to come to the ER for further evaluation. Found to be hypoxic. Imaging positive for left lower lobe pneumonia. Started on empiric antibiotics. Additionally patient's BNP is elevated at 3100, leukocytosis of 25. Currently on 4 L nasal cannula. ER consulted medicine for admission. On arrival to the floor, patient states she is feeling somewhat better after starting breathing treatments and antibiotics. Stable on 4 L oxygen. No nausea, vomiting, chest pain. No confusion or syncope. Hospital Course Hospital Course Hospital Course: Bharati Corona is a 72 year old female with a past medical history of cigarette nicotine dependence who prior to this admission hadn't seen a physician in over 8 years. She presented with 2-3 weeks of shortness of breath and admitted on 04/15 with left lower lobe pneumonia. She received a day of zosyn which was then changed to Rocephin. She will complete 7 days total of azithromycin and cephalosporin. 1 more day of antibiotics at discharge. Stable oxygen on 3 L. Cardiology and pulmonology consulted during admission and assisting with care. Patient stable for discharge home to continue treatment. Med sent to clinic pharmacy. Problems addressed as follows: #acute hypoxic respiratory failure #community acquired pneumonia. #sepsis, Admitted for hypoxemic respiratory failure due to pneumonia. Found to have elevated BNP. Pulmonology and cardiology consulted to assist with care during admission. Patient started on broad-spectrum antibiotics with Zosyn, transitioned to ceftriaxone and azithromycin. Will complete 7 days total of antibiotics. Due for 1 more day after discharge and will complete course with cefdinir 300 mg twice daily x1 day and azithromycin 500 mg x 1 day. Started on steroids day of discharge, will complete a total of 5 days of steroids with prednisone 40 mg daily. Patient still requiring oxygen at discharge, 3 L nasal cannula. Room air saturation was 85%. Is overall done well through her hospitalization. Continue incentive spirometry. Sent with [facility] and order for nebulizer as DME. We will continue diuresis for another few days given pulmonary congestion on chest imaging. Cardiology recommended continued treatment for her blood pressure with irbesartan daily and aspirin 81 mg daily. White cell count has normalized. Cultures remain negative. Overall doing better. Stable for discharge home. Follow-up in the next 2 weeks with pulmonology. Follow-up with cardiology in the coming weeks for further evaluation of coronary artery disease. Initiated on Trelegy 100 inhaler at discharge. Continue to use daily. Stable for discharge home. Exam Data for Last 24 hours Vital signs and Labs for Last 24 Hours: Temp Pulse Resp BP Pulse Ox FiO2 97.6 F 83 18 151/83 H 93 L 2 04/19/23 12:00 04/19/23 12:00 04/19/23 12:00 04/19/23 12:00 04/19/23 12:00 04/18/23 19:55 Laboratory Results - last 24 hr 04/19/23 05:53: WBC 14.8 H, RBC 4.27, Hgb 13.0, Hct 41.9, MCV 98.3, MCH 30.4, MCHC 31.0 L, RDW 13.1, Plt Count 436 H, MPV 7.7, Neut % (Auto) 84.6 H, Lymph % (Auto) 7.8 L, [place] % (Auto) 6.2, Eos % (Auto) 0.9, Baso % (Auto) 0.5, Neut # (Auto) 12.6 H, Lymph # (Auto) 1.2, [place] # (Auto) 0.9, Eos # (Auto) 0.1, Baso # (Auto) 0.1 04/19/23 05:53: Sodium 141, Potassium 5.0, Chloride 97 L, Carbon Dioxide 39 H, Anion Gap 10.0, BUN 18 H, Creatinine 0.90 D, Estimated Creat Clear 50, Estimated GFR 62, Est GFR ( Amer) 75 D, Glucose 93, Calcium 8.3 L 04/19/23 06:00: Specimen Source Right radial, O2 % 3.5l, ABG pH 7.41, ABG pCO2 54.8 H, ABG pO2 77.6 L, ABG HCO3 33.8 H, ABG Total CO2 35.5 H, ABG O2
--- NOTE | 2023-04-19 12:48 | EXP.ACUTE.PN ---
Subjective *Date: 04/19/23 *Time: 17:12 Interval history: Patient is feeling somewhat better today. Still requiring 2 L nasal cannula oxygen. Denies any fever, nausea, vomiting, diarrhea. Having intermittent cough still. Still dyspneic with exertion. Chest x-ray reviewed, showing effusion and pulmonary congestion on the left side. Tolerating p.o. intake. Responding to breathing treatments. Medical Exam Vital signs and Labs for Last 24 Hours: Vital Signs Temp Pulse Pulse Resp BP Pulse Ox FiO2 04/19/23 12:00 97.6 F 83 18 151/83 H 93 L 04/19/23 08:00 78 04/19/23 08:00 98.2 F 84 18 133/65 92 L 04/19/23 06:31 76 04/19/23 06:31 76 04/19/23 06:31 91 L 04/19/23 04:00 80 04/19/23 04:00 98.9 F 76 20 137/68 93 L 04/19/23 00:00 80 04/19/23 00:00 99.0 F 87 20 140/68 90 L 04/18/23 23:21 86 04/18/23 23:21 86 04/18/23 20:00 90 04/18/23 20:00 90 L 04/18/23 19:55 78 L 2 04/18/23 20:00 98.4 F 95 H 22 132/72 90 L 04/18/23 18:38 32 04/18/23 18:37 84 04/18/23 18:37 83 04/18/23 16:00 81 04/18/23 14:59 97.9 F 82 18 142/74 H 94 L Intake and Output 04/18/23 04/19/23 04/19/23 23:59 07:59 15:59 Intake Total 360 / 960 480 / 480 Output Total 0 / 0 0 / 0 Balance 360 / 840 0 / 480 480 / 480 Intake: Intake, Oral Amount 360 / 960 480 / 480 Output: Output, Urine Amount 0 / 0 0 / 0 Other: Number of Unmeasured Voids 1 1 Weight 61.037 kg Patient Weight 04/19/23 23:59 Weight 61.037 kg Laboratory Results - last 24 hr 04/19/23 05:53: WBC 14.8 H, RBC 4.27, Hgb 13.0, Hct 41.9, MCV 98.3, MCH 30.4, MCHC 31.0 L, RDW 13.1, Plt Count 436 H, MPV 7.7, Neut % (Auto) 84.6 H, Lymph % (Auto) 7.8 L, [place] % (Auto) 6.2, Eos % (Auto) 0.9, Baso % (Auto) 0.5, Neut # (Auto) 12.6 H, Lymph # (Auto) 1.2, [place] # (Auto) 0.9, Eos # (Auto) 0.1, Baso # (Auto) 0.1 04/19/23 05:53: Sodium 141, Potassium 5.0, Chloride 97 L, Carbon Dioxide 39 H, Anion Gap 10.0, BUN 18 H, Creatinine 0.90 D, Estimated Creat Clear 50, Estimated GFR 62, Est GFR ( Amer) 75 D, Glucose 93, Calcium 8.3 L 04/19/23 06:00: Specimen Source Right radial, O2 % 3.5l, ABG pH 7.41, ABG pCO2 54.8 H, ABG pO2 77.6 L, ABG HCO3 33.8 H, ABG Total CO2 35.5 H, ABG O2 Saturation 95, ABG Base Excess 9.1 H, [place] Test Acceptable I & O for Labs for Last 24 Hours: Intake & Output 04/16/23 04/17/23 04/18/23 04/19/23 23:59 23:59 23:59 23:59 Intake Total 600 / 720 1080 / 1200 960 / 960 480 / 480 Output Total 0 / 0 0 / 0 120 / 120 0 / 0 Balance 600 / 720 1080 / 1200 840 / 840 480 / 480 Weight 60.9 kg 61.292 kg 60.866 kg 61.037 kg Constitutional: Present no acute distress Head: Present atraumatic and normocephalic ENT: Present normal exam Neck: Present normal inspection Respiratory: Present decreased breath sounds and crackles (bases, worse on right); Absent CTA bilaterally, rhonchi or wheezes Cardiac: Present Reg Rate and Rhythm GI: Present normal bowel sounds; Absent tenderness Extremities: Present normal inspection and full ROM Skin: Present intact; Absent erythema Neuro: Present Grossly Intact, alert, awake, oriented x 3 and moves all extremities Assessment and Plan *Assessment and plan (1) Acute hypoxemic respiratory failure: Status: Acute Category: Medical Code(s): J96.01 - Acute respiratory failure with hypoxia (2) Community acquired pneumonia: Status: Acute Qualifiers: Laterality: unspecified laterality Qualified Code(s): J18.9 - Pneumonia, unspecified organism Category: Medical Code(s): J18.9 - Pneumonia, unspecified organism (3) Hypoxia: Status: Acute Category: Medical Code(s): R09.02 - Hypoxemia (4) NSTEMI (non-ST elevated myocardial infarction): Status: Acute Category: Medical Code(s): I21.4 - Non-ST elevation (N
--- NOTE | 2023-04-19 17:28 | PC.NURSE ---
Patient weaned from 3LNC to 2LNC. VS stable. No productive cough noted, pt instructed to spit any sputum in cup for sample. IV antibiotics given. Lung sounds inspiratory rhonchi at bases in am, diminished this evening. Patient using incentive spirometer appropriately. No other changes noted.
--- NOTE | 2023-04-19 18:18 | PC.NURSE ---
RESP NOTE: INCREASED PT O2 TO 3LPM. SATS WERE 85% ON 2LPM
[2023-04-20] VITALS: BP 127/59; PULSE 81; RESP 18; TEMP 36.8; O2SAT 93
[2023-04-20 04:00] VITALS: BP 141/71; PULSE 79; RESP 18; TEMP 36.9; O2SAT 95; BMI 24.2
[2023-04-20 05:25] VITALS: PULSE 74; PULSE 78; O2SAT 91
[2023-04-20 06:28] LABS: Basophils # 0.1 K/mm3 (0-0.2); Basophils % 0.6 % (0.1-2.0); Eosinophils # 0.1 K/mm3 (0.0-0.4); Eosinophils % 1.1 % (0.1-12.0); Hematocrit 42.4 % (37.0-47.0); Hemoglobin 12.8 g/dL (12.2-16.2); Lymphocytes # 1.5 K/mm3 (0.7-4.5); Lymphocytes % 11.7 % (10-50); Mean Corpuscular HGB Conc 30.3 g/dL (31.8-35.4); Mean Corpuscular Hemoglobin 29.5 pg (27.0-31.2); Mean Corpuscular Volume 97.5 fl (81-99); Mean Platelet Volume 7.6 fl (7.4-10.4); Monocytes # 0.8 K/mm3 (0.1-1.0); Neutrophils # 10.4 K/mm3 (1.8-7.8); Neutrophils % 80.6 % (37.0-80.0); Platelet Count 422 K/mm3 (142-424); Red Blood Count 4.35 M/mm3 (4.20-5.40); Red Cell Distribution Width 12.9 % (11.5-17.5); White Blood Count 12.9 K/mm3 (4.8-10.8)
[2023-04-20 06:30] LABS: Chloride 94 mmol/L (98-107); Potassium 4.5 mmoL/L (3.5-5.1); Sodium 140 mmol/L (136-145)
[2023-04-20 06:32] LABS: Alanine Aminotransferase 28 U/L (12-78); Aspartate Amino Transferase 38 U/L (14-36); Blood Urea Nitrogen 17 mg/dl (7-17); Creatinine Clearance Estimated 49 mL/min (50-200); Estimated Glomerular Filt Rate 62 ml/min (>60); GFR (African American) 75 ML/MIN (>60)
[2023-04-20 06:33] LABS: Albumin Level 3.1 g/dl (3.5-5.0); Albumin/Globulin Ratio 0.7 (1.1-1.8); Alkaline Phosphatase 117 U/L (38-126); Bilirubin,Total 0.3 mg/dl (0.2-1.3); Calcium 8.4 mg/dl (8.4-10.2); Globulin 4.2 g/dL (1.3-3.2); Glucose 95 mg/dl (74-100); Magnesium 2.3 mg/dl (1.6-2.3); Total Protein,Serum 7.3 g/dl (6.3-8.2)
[2023-04-20 06:40] LABS: Anion Gap 12.5 mEq/L (5-15); Carbon Dioxide 38 mmol/L (22.0-30.0)
[2023-04-20 08:00] VITALS: BP 144/80; PULSE 92; RESP 22; TEMP 36.5; O2SAT 91
--- NOTE | 2023-04-20 09:44 | XR_ITS ---
FINAL REPORT CLINICAL HISTORY: Hypoxia COMPARISON: 04/19/2023 FINDINGS: A single portable view of the chest was obtained. The heart size and pulmonary vascularity are within normal limits. The mediastinum is within normal limits. Bilateral peripheral pulmonary opacities are present, unchanged from the prior film of April 19. These are worrisome for an underlying pneumonia. A small right pleural effusion is present. The bony thorax is intact. IMPRESSION: Peripheral bilateral pulmonary opacities worrisome for pneumonia, unchanged since 04/19/2023. A right pleural effusion, small, remains present. Reviewed, Interpreted and Dictated by Pj Burgos III, MD Transcribed by Coleen Kline Authenticated and [facility]
--- NOTE | 2023-04-20 10:14 | EXP.PULM.PN ---
Subjective *Date: 04/21/23 *Time: 09:55 Interval history: No acute respiratory vents overnight. Patient denies any new respiratory complaints. Pulmonology Exam Inpatient Vital signs and Labs for Last 24 Hours: Temp Pulse Resp BP Pulse Ox FiO2 97.7 F 92 H 22 144/80 H 91 L 2 04/20/23 08:00 04/20/23 08:00 04/20/23 08:00 04/20/23 08:00 04/20/23 08:00 04/18/23 19:55 Laboratory Results - last 24 hr 04/20/23 05:58: WBC 12.9 H, RBC 4.35, Hgb 12.8, Hct 42.4, MCV 97.5, MCH 29.5, MCHC 30.3 L, RDW 12.9, Plt Count 422, MPV 7.6, Neut % (Auto) 80.6 H, Lymph % (Auto) 11.7, [place] % (Auto) 6.0, Eos % (Auto) 1.1, Baso % (Auto) 0.6, Neut # (Auto) 10.4 H, Lymph # (Auto) 1.5, [place] # (Auto) 0.8, Eos # (Auto) 0.1, Baso # (Auto) 0.1 04/20/23 05:58: Sodium 140, Potassium 4.5, Chloride 94 L, Carbon Dioxide 38 H, Anion Gap 12.5, BUN 17, Creatinine 0.90, Estimated Creat Clear 49, Estimated GFR 62, Est GFR ( Amer) 75, Glucose 95, Calcium 8.4, Magnesium 2.3, Total Bilirubin 0.3, AST 38 H, ALT 28, Alkaline Phosphatase 117, Total Protein 7.3, Albumin 3.1 L, Globulin 4.2 H, Albumin/Globulin Ratio 0.7 L I & O for Labs for Last 24 Hours: Intake & Output 04/17/23 04/18/23 04/19/23 04/20/23 23:59 23:59 23:59 23:59 Intake Total 1080 / 1200 960 / 960 1010 / 1010 240 / 240 Output Total 0 / 0 120 / 120 0 / 0 Balance 1080 / 1200 840 / 840 1010 / 1010 240 / 240 Weight 135 lb 2 oz 134 lb 3 oz 134 lb 9 oz 131 lb 8 oz Microbiology Reports for the Last 24 Hours: Microbiology 04/15/23 09:31 Blood Blood Culture - Final NO GROWTH AFTER 5 DAYS Constitutional: Present moderate distress Head: Present normocephalic and atraumatic ENT: Present normal exam, normal oropharynx and mucous membranes moist Neck: Present normal inspection and full ROM Respiratory: Present respiratory distress, wheezes, diminished air movement and able to speak in complete sentences; Absent prolonged expiratory phase Cardiac: Present S1/S2, Tachycardia and radial pulses present GI: Present soft and distention; Absent tenderness or guarding Rectal (female): Present deferred (female): Present deferred Skin: Present intact; Absent cyanosis or jaundice Neuro: Present alert, awake and oriented x 3 Extremities: Present normal inspection; Absent clubbing or cyanosis Psychiatric: Present normal affect and cooperative Assessment and Plan *Assessment and plan (1) Acute hypoxemic respiratory failure: Status: Acute Category: Medical Code(s): J96.01 - Acute respiratory failure with hypoxia (2) Community acquired pneumonia: Status: Acute Qualifiers: Laterality: unspecified laterality Qualified Code(s): J18.9 - Pneumonia, unspecified organism Category: Medical Code(s): J18.9 - Pneumonia, unspecified organism (3) COPD exacerbation: Status: Acute Category: Medical Code(s): J44.1 - Chronic obstructive pulmonary disease with (acute) exacerbation Plan Ms. Corona is a 72-year-old female current smoker greater than [id number] smoking history presented to the hospital with worsening respiratory status found to be having been initiated on antibiotics and pulmonary was called for further evaluation. Patient admitted based on respiratory symptoms but never this worse which made her come to the hospital. She continued to have cough, denies any significant productive phlegm. Patient on admission noted to have significant leukocytosis at 25.7, initiated ceftriaxone azithromycin for which improved respiratory status and leukocytosis. ABG from admission reviewed, not to have chronic hypercarbic respiratory failure pH of 7.41, PCO2 54.8. PO2 at 77.6. Patient currently on 3.5 L nasal cannula oxygen supplementation. Chest x-ray on admission bilateral lower lobe airspace disease. Chest x-ray from 04/19/13 worsening left lower lobe airspace disease along with right effusion and atelectasis. Interval update:
--- NOTE | 2023-04-20 11:11 | PC.NURSE ---
hermelinda velasquez round on pt, no needs at this time. stated shes wants to go home
[2023-04-20 12:00] VITALS: BP 116/65; PULSE 79; RESP 20; TEMP 36.6; O2SAT 90
--- NOTE | 2023-04-20 12:55 | P.CONPHA_ITS ---
Pharmacy Intervention Comments: Discharge medication counseling complete. Patient was starting the following new meds: -aspirin: 81 mg once daily. Told to watch for signs of bleeding (easily bruising, blood in stool, etc.) -azithromycin: 500 mg (two 250 mg tabs) for one day -cefdinir: 300 mg BID to be taken tomorrow. Said possible side effects of antibiotics could include stomach upset and/or diarrhea and that taking with food could help to avoid this. -furosemide: 40 mg once daily. Said possible side effects could include dry jaye th, dizziness, and/or frequent urination (take in the morning having to get up at night to urinate) -Duoneb: every 6 hours. Could cause temporary side effects of increased HR, shakiness, headache after use. -irbesartan: 75 mg once daily. Said to take first dose in the evening close to bedtime in case of dizziness -prednisone: 40 mg (two 20 mg tabs). Said possible side effects could include mood changes and insomnia (take in the morning) -Trelegy: 1 puff once daily. Said to rinse mouth out with water and spit in sink after each use to prevent thrush. Verified that patient knew meds were being filled by [facility]. Patient took notes on med list on when/how to take meds. Said she had no questions currently, but would inform the nurse if any came to mind later on.
--- NOTE | 2023-04-21 14:50 | CARE MANAGER ---
Spoke with patient for post-discharge phone interview, no issues noted.
== END 2023-04-20 15:00 | disposition home or self-care (01) | DRG 280 ==
LOC: ER 09:59 → 2ND 11:01
PROVIDERS: Internal Medicine; Admitting Provider Internal Medicine Adolescent Medicine; Emergency Provider Emergency Medicine; Visit Provider Internal Medicine Adolescent Medicine
DX: I21.4 Non-ST elevation (NSTEMI) myocardial infarction (principal); J18.9 Pneumonia, unspecified organism; J96.01 Acute respiratory failure with hypoxia; J44.1 Chronic obstructive pulmonary disease with (acute) exacerbation; J44.0 Chronic obstructive pulmonary disease with (acute) lower respiratory infection; Z71.6 Tobacco abuse counseling; F17.210 Nicotine dependence, cigarettes, uncomplicated
CPT/HCPCS: 36415; 71045; 71046; 80048; 80053; 80061; 82803; 82962; 83605; 83735; 83880; 84443; 84484; 85007; 85025; 87040; 87636; 93005; 93306; 94640; 94761; 99285; C9803; J0456; J0696; J2543; U0003; U0005

== ENCOUNTER → 2023-07-13 07:27 | Outpatient (CLI) | payer MEDICARE, SELFPAY ==
--- NOTE | 2023-07-13 07:27 | CT_ITS ---
FINAL REPORT CLINICAL HISTORY: lung cancer screening current smoker 1/2 ppd x50 years COMPARISON: None FINDINGS: CT CHEST LOW DOSE SCREENING HISTORY: Screening exam for lung cancer. Current smoker, 25 pack year smoking history DOSE: CTDIvol: 2.9 mGy, DLP: 98.9 mGy*cm COMPARISON: None . TECHNIQUE: Axial CT without IV contrast administration using low dose protocol FINDINGS: Moderate coronary calcifications are present. There is moderate scarring in the lung bases and mild changes of emphysema. There is a 4 mm nodule adjacent to the right major fissure seen in image #43. There is a 3 mm left lower lobe lateral nodule seen in image #51. There are multiple other 5 mm or less in size scattered nodules bilaterally.. There are patchy bilateral ground glass opacities, most prominently in the lingula. No pleural or pericardial effusion is seen . No adenopathy or mass lesion is present . IMPRESSION: Moderate coronary artery calcifications. Multiple 5 mm or less nodules bilaterally, as well as patchy bilateral ground glass opacities. LUNG RADS CATEGORY 2S The S classification is given for the multiple ground glass opacities, which may be inflammatory. RECOMMENDATION: 12 month LDCT follow up Reviewed, Interpreted and Dictated by Pj Burgos III, MD Transcribed by Coleen Kline Authenticated and [facility]
== END ==
PROVIDERS: PCP Family Medicine; Visit Provider Internal Medicine Pulmonary Disease
DX: F17.210 Nicotine dependence, cigarettes, uncomplicated (principal); R06.02 Shortness of breath
CPT/HCPCS: 71271; 94060; 94618; 94726; 94729

== ENCOUNTER 2025-08-10 10:18 | Emergency (ER) | payer MEDICARE, SELFPAY ==
[2025-08-10] VITALS (12 sets, daily range): BP systolic 135–177; BP diastolic 70–96; PULSE 61–87; RESP 20; TEMP 36.7–36.8; O2SAT 90–98; BMI 32.9
[2025-08-10 10:30] LABS: Coronavirus 19, PCR Not Detected (NotDetected); Influenza A, PCR Not Detected (NotDetected); Influenza B, PCR Not Detected (NotDetected)
--- OUTSIDE RECORDS SUMMARY | 2025-08-10 10:30 | XMS_ITS | Clinical Summary ---
Author Organization [facility] Address [address] [place] [address] Care Team Providers Care Tow Driver Name Role Phone Unavailable Primary Care Provider Unavailabl e Social History Tobacco Use Types Packs/Day Years Used Date Smoking Tobacco: Never Assessed Comments Unknown Sex and Gender Information Value Date Recorded Sex Assigned at Not on file Legal Sex Female 8:07 AM EDT Gender Identity Not on file Sexual Orientation Not on file Last Filed Vital Signs Vital Sign Reading Time Taken Comments Blood Pressure 135/62 04/16/2023 8:11 AM EDT Pulse 69 04/16/2023 8:11 AM EDT Temperature - - Respiratory Rate - - Oxygen Saturation - - Inhaled Oxygen Concentration - - Weight 59.4 kg (131 lb) 04/16/2023 8:11 AM EDT Height 157.5 cm (5' 2 ) 04/16/2023 8:11 AM EDT Body Mass Index 23.96 04/16/2023 8:11 AM EDT Plan of Treatment Health Maintenance Due Date Last Done Comments [facility]-Bone Density Scan 1951 [facility]-Depression Screening 1950 [facility]-/Child/Adol SDOH Screenings 1950 [facility]- SDOH Screenings 1969 [facility]-Adult SDOH Screenings 1969 CT Colonography 1996 Colonoscopy 1996 FIT-DNA 1996 FIT 1996 FOBT 1996 Sigmoidoscopy 1996 [facility]-Colorectal Cancer Screening 1996 [facility]-DTaP,Tdap,and Td Vaccine s (1 - Tdap) 01/11/1997 01/10/1997 [facility]-Pneumococcal Vaccine: 50 + Years (1 of 1 - PCV) 2001 [facility]-Zoster Vaccines (1 of 2) 2001 [id number] Vaccine (3 - 2025-26 season) 2025 09/17/2021, 01/16/2021 [facility]-Influenza Vaccine (#1) 2025 [facility]-RSV Vaccine: 60+ Years o r (1 - 1-dose 75+ series) 2026 HPV Vaccines Aged Out No longer eligi ble based on patient's age to complete this topic [facility]-HIB Vaccines Aged Out No longer e ligible based on patient's age to complete this topic [facility]-Hepatitis A Vaccines Aged Out No longer eligible based on patient's age to complete this topic [facility]-IPV Vaccines Aged Out No longer e ligible based on patient's age to complete this topic [facility]-Rotavirus Vaccines Aged Out No lo nger eligible based on patient's age to complete this topic Insurance MEDICARE
--- NOTE | 2025-08-10 11:03 | XR_ITS ---
FINAL REPORT TECHNIQUE: Chest PA & Lateral CLINICAL HISTORY: Cough COMPARISON: 04/20/2023 FINDINGS: 2 views of the chest were performed. The heart size is normal. The mediastinum is within normal limits. There is no acute cardiopulmonary process. Chronic changes are noted in the lung gaitan bilaterally. There are no pleural effusions. There is no pneumothorax. The bony thorax appears intact. IMPRESSION: Chronic changes in the lung gaitan bilaterally, with no acute cardiopulmonary process. Reviewed, Interpreted and Dictated by Ismael Godinez MD Transcribed by Coleen Kline Authenticated and . [facility]
--- NOTE | 2025-08-10 11:05 | ECG_ITS ---
APPROVED REPORT Exam: Resting ECG HR:72 bpm ECG Measurements Heart Rate 72 AXES RI 168 P 89 QRSd 76 QRS 54 QT 400 T 87 QTc 424 Conclusion Normal sinus rhythm Normal axis Normal intervals No STEMI Electronically signed by : Kvng Peter, 08/10/2025 16:13:59
--- NOTE | 2025-08-10 11:16 | PC.NURSE ---
[id number]- Patient to X-Rays
--- NOTE | 2025-08-10 11:21 | PC.NURSE ---
Patient back from X-Rays
[2025-08-10] MEDS: IPRATROPIUM/ALBUTEROL 3 ML NEB IH (14:10)
--- NOTE | 2025-08-10 14:31 | HMH.EDGENADL ---
Discharge Plan Disposition Patient Disposition: Home, Self-Care Condition: Good Prescriptions Prescriptions: New prednisone 20 mg tablet 40 mg PO DAILY 5 Days Qty: 10 0RF azithromycin [Zithromax TRI-LION] 500 mg tablet See Rx Instructions .ROUTE .COMPLEX Qty: 6 0RF Rx Instructions: For 250 mg dose pack: take 500 mg today (day 1), then 250 mg for 4 days (days 2-5) No Action irbesartan 150 mg tablet 150 mg PO DAILY Qty: 30 2RF (DME) miscellaneous medical supply Misc See Rx Instructions .Route Qty: 1 0RF Rx Instructions: As directed ipratropium-albuterol 0.5 mg-3 mg(2.5 mg base)/3 mL solution for nebulization 3 ml inhalation QID PRN (Reason: shortness of breath or wheezing) 90 Days Qty: 270 2RF albuterol sulfate 90 mcg/actuation HFA aerosol inhaler 2 inh inhalation QID PRN (Reason: shortness of breath or wheezing) 90 Days Qty: 8.5 2RF Stiolto Respimat 2.5-2.5 mcg/actuation mist 2 puff inhalation DAILY 90 Days Qty: 4 2RF aspirin 81 mg Tablet,Chewable 81 mg PO DAILY 30 Days Qty: 30 0RF Referrals Follow up/Referrals: Jewel Azul MD [Primary Care Provider, Medical] - See instructions Activity Restrictions/Add. Instructions Additional Instructions/Restrictions: Please take Prednisone for the next 5 days. I also want you to take Azithromycin. If you have any new or worsening symptoms please return. Clinical Impressions Clinical Impression: COPD exacerbation, Acute viral syndrome Print Language Print Language: Latvian Discharge ED Provider: Kvng Peter Adult HPI General Chief complaint: Upper Respiratory Infection Stated complaint: Chest congestion, cough, headache Time Seen by Provider: 08/10/25 10:45 Mode of Arrival: Ambulatory Source of Information: Patient Description of Symptoms (Recalled from ER Triage Doc. by RN): pt kept sick grandson last weekend and on wednesday she started noticing a dry hacky cough and headache History of Present Illness HPI narrative: This is a 74-year-old female patient, with past medical history of hypertension, tobacco abuse, congestive heart failure, and COPD, who is presenting to the emergency department today for evaluation of upper respiratory symptoms of cough. Patient states that she spent this past weekend with her grandchild who is currently sick with a viral syndrome. She states that over the last 5 days she has developed rhinorrhea and congestion as well as a cough herself. She is now producing phlegm. She does not feel overtly short of breath and has not had any chest pain. She has not taken any medications for her symptoms at home. No lower extremity erythema or edema. Related Data Previous Rx's ?Medication ?Instructions ?Recorded aspirin 81 mg chewable tablet 81 mg PO DAILY 30 days #30 tabs 04/20/23 albuterol sulfate 90 mcg/actuation 2 inh inhalation QID PRN shortness 05/13/23 aerosol inhaler of breath or wheezing 90 days #8.5 grams ipratropium 0.5 mg-albuterol 3 mg 3 ml inhalation QID PRN shortness 05/13/23 (2.5 mg base)/3 mL nebulization of breath or wheezing 90 days #270 soln mL irbesartan 150 mg tablet 150 mg PO DAILY #30 tabs 06/24/23 miscellaneous medical supply #1 ea 06/24/23 tiotropium 2.5 mcg-olodaterol 2.5 2 puff inhalation DAILY 90 days #4 07/20/23 mcg/actuation mist for inhalation grams (Stiolto Respimat) azithromycin 500 mg tablet See Rx Instructions PO .COMPLEX #6 08/10/25 (Zithromax TRI-LION) tabs prednisone 20 mg tablet 40 mg (2 x 20 mg) PO DAILY 5 days 08/10/25 #10 tabs Allergies Allergy/AdvReac Type Severity Reaction Status Date / Time No Known Allergies Allergy Verified 07/20/23 13:40 [facility] Disclaimer: The information contained in this section may have been updated after the patient was seen, as this information can be updated by other users. Medical History (Updated 08/10/25 @ 14:39 by Kvng Peter DO) Exercise hypoxemia COPD mixed type HTN (hypertension) Dyspnea Encounter for screening for malignant neoplasm of lung Pulmonary emphysema Smoking greater than 30 pack years Dyspnea on exertion COPD exacerbation No pertinent past medical history Surgical History H/O knee surgery Family History Other No significant family history Social History Smoking Status: Current every day smoker alcohol intake: never current occupational status: retired Travel in the last 8 weeks?: None Have you lived/traveled outside [place] in past 30 days?: No Contact w/someone who lives/traveled outside [place] past 30 days?: No Exposure to someone with infectious disease in past 14 days?: No Do you have a fever (greater than 100.4 F or 38 C)?: No Have you tested positive for COVID-19?: No Exposed to someone with COVID-19 in past 14 days?: No Do you have a sore throat?: No Do you have a cough?: No Do you have any weakness?: No Do you have any diarrhea?: No Are you experiencing any unusual bleeding?: No Do you have any muscle aches/pain?: No Do you have any abdominal pain?: No Are you experiencing loss of taste or smell?: No Other Medical History Have you received the Flu Vaccine for this season: No Have you received the Pneumonia Vaccine: No ROS Obtained: Yes Systems reviewed as appropriate & no additional complaints except as documented Physical Exam General General appearance: other (See MDM) Respiratory Respiratory exam: Present other (See MDM) Cardiovascular Cardiovascular exam: Present other (See MDM) Neurological Exam Neurological exam: Present other (See MDM) Medical Decision Making Medical Records Medical records reviewed: Yes I reviewed the patient's medical records. Screening: Per USPSTF and CDC recommendations, given the prevalence of disease in our region, it is our hospital?s policy to screen for HIV and viral Hepatitis for all patients aged 18 and over and those with ongoing risk factors. Chance Inquiry Pt receiving controlled substance: No Chance was queried for this patient: No Vital Signs: 08/10/25 10:20 08/10/25 10:24 08/10/25 10:30 Temperature 98.0 F Temperature Source Oral Pulse Rate 87 86 Pulse Rate [Left Radial] 82 Respiratory Rate 20 Blood Pressure 161/93 H 165/96 H Blood Pressure [Right Arm] 161/93 H Blood Pressure Mean [Right Arm] 115 02 Sat by Pulse Oximetry 93 L 92 L 95 Oxygen Delivery Method Room Air 08/10/25 11:01 08/10/25 11:30 08/10/25 12:00 Temperature Temperature Source Pulse Rate 74 74 67 Pulse Rate [Left Radial] Respiratory Rate Blood Pressure 162/88 H 177/85 H 156/81 H Blood Pressure [Right Arm] Blood Pressure Mean [Right Arm] 02 Sat by Pulse Oximetry 92 L 92 L 90 L Oxygen Delivery Method 08/10/25 12:30 08/10/25 13:00 08/10/25 13:18 Temperature Temperature Source Pulse Rate 69 61 Pulse Rate [Left Radial] Respiratory Rate Blood Pressure 154/74 H 170/86 H Blood Pressure [Right Arm] Blood Pressure Mean [Right Arm] 02 Sat by Pulse Oximetry 90 L 92 L 94 L Oxygen Delivery Method Room Air 08/10/25 13:30 08/10/25 14:00 08/10/25 14:50 Temperature 98.2 F Temperature Source Pulse Rate 64 66 85 Pulse Rate [Left Radial] Respiratory Rate 20 Blood Pressure 177/80 H 169/80 H 135/70 Blood Pressure [Right Arm] Blood Pressure Mean [Right Arm] 02 Sat by Pulse Oximetry 90 L 91 L Oxygen Delivery Method Room Air Lab Data Lab Results 08/10/25 10:24: SARS-CoV-2 (PCR) Not detected, Influenza A Untype (PCR) Not detected, Influenza Type B (PCR) Not detected Orders (Tests/Meds): ED MEDICATIONS Discontinued Medications Generic Name Dose Route Start Last Admin Trade Name Freq PRN Reason Stop Dose Admin Albuterol/Ipratropium 3 ml 08/10/25 13:56 08/10/25 14:10 Ipratropium/Albuterol 3 Ml Neb 08/10/25 13:57 3 ml ONCE ONE Administration Prednisone 60 mg 08/10/25 11:03 08/10/25 11:14 Prednisone 20mg Tab PO 08/10/25 11:04 60 mg ONCE ONE Administration ORDERS Category Date Time Status CXR 2 view (NOT portable) [XR chest 2V] Stat Exams 08/10/25 11:03 Completed Rapid PCR Covid and Flu A/B Stat Lab 08/10/25 10:24 Completed ECG Data Tracing #1: I reviewed this ECG and interpreted as documented below: EKG personally interpreted by me demonstrates normal sinus rhythm at a rate of 72 bpm, normal axis, no FL prolongation, narrow QRS, no QTc prolongation. No ST elevation or depression. No overt signs of ischemia or arrhythmia. Interpretation of lead V3 is limited by artifact. Medical Decision Narrative: In summary, this is a 74-year-old female patient who is presenting to the emergency department today for evaluation of upper respiratory symptoms and cough after being exposed to her granddaughter this past weekend who was sick with a viral illness. Patient's comorbidities include hypertension, congestive heart failure, COPD, and tobacco abuse. On initial evaluation of the patient they were resting comfortably in no acute distress and nontoxic in appearance. They are hemodynamically stable, saturating well room air, and are neurologically intact. On physical examination of the patient she had faint end expiratory wheezing. She also had repetitive cough with production of phlegm in the room. She has no abdominal tenderness to palpation. No lower extremity erythema or edema. Differential diagnosis includes pneumonia, viral syndrome, COPD exacerbation, among others. We proceeded with viral swabs as well as an EKG and a chest x-ray. EKG was personally turbid by me and does not show any evidence of myocardial ischemia. Chest x-ray was personally interpreted by me and demonstrates no lobar consolidation or pleural effusion. Viral swabs are negative. I do feel that this patient's presentation is consistent with a viral syndrome which is likely aggravating her COPD. We have treated the patient with a DuoNeb as well as 60 mg prednisone. Patient has responded well and she remains resting comfortably on room air. Wheezes have improved. We will discharge patient home with a Z-Lion for the next 5 days as well as a 5-day course of prednisone 40 mg. I have given strict return precautions in the event that she has any new or worsening symptoms. At this time all questions been answered and all parties are agreeable with the decision to discharge home Critical Care Critical Care Time Critical Care Time: No
== END 2025-08-10 14:51 | disposition home or self-care (01) ==
PROVIDERS: Emergency Provider Student in an Organized Health Care Education/Training Program; PCP Family Medicine
DX: J44.1 Chronic obstructive pulmonary disease with (acute) exacerbation (principal); R09.81 Nasal congestion; B34.9 Viral infection, unspecified; F17.210 Nicotine dependence, cigarettes, uncomplicated
CPT/HCPCS: 71046; 87636; 93005; 99284